=== PATIENT | male | born 1965 | race Caucasian/White ===

== ENCOUNTER 2017-11-05 21:59 | Emergency (ER) | END 2017-11-06 02:30 | disposition short-term general hospital (02) ==

== ENCOUNTER 2018-02-03 14:56 | Emergency (ER) | END 2018-02-03 17:29 | disposition home or self-care (01) ==

== ENCOUNTER 2018-11-24 13:04 | Emergency (ER) | payer MEDICAID, OTHER ==
[~2018-11-24] VITALS: Wt 70.0 kg
[~2018-11-24 13:04] MED LIST: NAPR-985 PO; SSD1C20 TOP; TRAM50TA2 PO
[2018-11-24 13:08] VITALS: BP 142/80; PULSE 85; RESP 18
[2018-11-24] MEDS ORDERED: KETOROLAC 30 MG INJ IM STA (14:58)
[2018-11-24] MEDS ORDERED: HYDROCODONE/APAP (5/325) TAB PO ONE (15:00)
[2018-11-24] MEDS ORDERED: IBUP-1542 PO (15:08)
[2018-11-24] MEDS ORDERED: TRAM50TA2 PO (15:08)
--- NOTE | 2018-11-24 15:12 | ERD ---
ER Documentation Chief Complaint Chief Complaint right side lower back pain non traumatic for a few days. HPI 52-year-old male presents low back pain rating to the right buttock with some s ensation of burning for last 3 days. Denies any history of trauma. Denies any bowel or bladder incontinence, fevers, urinary complaints. Patient describes it as a 10, worse with movement, decreased with rest, pain sharp and burning and radiates to the right lower extremity. ROS All systems reviewed and are negative except as per history of present illness. Medications Home Meds Active Scripts Ibuprofen* (Motrin*) 600 Mg Tab, 600 MG PO Q6, #30 TAB Prov:DENAE HOUSE MD 11/24/18 Tramadol HCl (Tramadol HCl) 50 Mg Tablet, 50 MG PO Q4 PRN for PAIN, #20 TAB Prov:DENAE HOUSE MD 11/24/18 Naproxen* (Naprosyn*) 500 Mg Tablet, 500 MG PO BID PRN for PAIN AND/OR INFLAMMATION, #30 TAB Prov:KATHY MUSA PA-C 07/14/16 Tramadol HCl (Tramadol HCl) 50 Mg Tablet, 50 MG PO Q4 PRN for PAIN, #30 TAB Prov:KATHY MUSA PA-C 07/14/16 Silver Sulfadiazine (THERMAZENE 1% 25 GM) 1 Applic Cr, 1 APPLIC TOP BID, #1 TUB Prov:CHLOE ROWLAND 04/10/16 Allergies Allergies: Coded Allergies: No Known Allergy (Unverified , 09/18/14) PMhx/Soc History of Surgery: Yes (appy) Anesthesia Reaction: No Hx Neurological Disorder: No Hx Respiratory Disorders: No Hx Cardiac Disorders: No Hx Psychiatric Problems: No Hx Miscellaneous Medical Probl: Yes (DM, left foot ulcer ) Hx Alcohol Use: No Hx Substance Use: No Hx Tobacco Use: No FmHx Family History: No diabetes, No coronary disease, No other Physical Exam Vitals Vital Signs Date Temp Pulse Resp B/P (MAP) Pulse Ox O2 O2 Flow FiO2 Time Delivery Rate 11/24/18 98.0 85 18 142/80 98 13:08 (100) Physical Exam Const: No acute distress Head: Atraumatic Eyes: Normal Conjunctiva ENT: Normal External Ears, Nose and Mouth. Neck: Full range of motion. No meningismus. Resp: Clear to auscultation bilaterally Cardio: Regular rate and rhythm, no murmurs Abd: Soft, non tender, non distended. Normal bowel sounds Skin: No petechiae or rashes Back: No midline or flank tenderness. Tenderness right L4-5 area with spasm. No midline tenderness or deformities. Positive straight leg raise. Ext: No cyanosis, or edema Neur: Awake and alert Psych: Normal Mood and Affect Results 24 hrs Current Medications Medications Dose Sig/Kailyn Start Time Status Last (Trade) Ordered Route PRN Stop Time Admin Dose Reason Admin Ketorolac 30 mg ONCE STAT 11/24/18 DC 11/24/18 Tromethamine IM 14:58 15:05 (Toradol) 11/24/18 14:59 1 tab ONCE ONCE 11/24/18 DC 11/24/18 Acetaminophen PO 15:00 15:06 / 11/24/18 15:01 Hydrocodone Bitart (Ceiba (5/325)) Procedures/MDM Patient presents with nontraumatic low back pain with radiation to right lower extremity consistent with sciatica. Doubt cauda equina, epidural abscess, no mechanism to suggest fracture, dislocation, additional concerning signs or symptoms. Will be treated with Toradol, Ceiba x1 here. He will be treated with Tylenol and ibuprofen at home with instructions on back exercises. He should return for fevers, new or worsening symptoms with primary care doctor. The patient was stable with no new complaints during the ER course. Clinically, there is no current evidence to suggest meningitis, sepsis, acute abdomen, pneumonia, stroke, acute coronary syndrome, pulmonary embolism, aortic dissection or any other emergent condition appearing to require further evaluation or hospitalization. Patient counseled regarding my diagnostic impression and care plan. Prior to discharge all questions answered. Pt agrees with treatment plan and understands strict return precautions. Pt is instructed to follow up with primary care provider within 24-48 hours. Precautionary instructions provided including instructions to return to the ER if not improving or for any worsening or changing symptoms or concerns. Departure Diagnosis: Primary Impression: Back pain Back pain location: low back pain Chronicity: acute Back pain laterality: right Sciatica presence: with sciatica Sciatica laterality: sciatica of right side Qualified Codes: M54.41 - Lumbago with sciatica, right side Condition: Stable Patient Instructions: Back Exercises, Lumbar, Back Pain W/ Sciatica Referrals: NO PRIMARY,CARE PHYSICIAN (PCP) Additional Instructions: Cheque otro vez con mccoy doctor primario en el proximo girard or regresa para mas o nueva simptomas. DENAE HOUSE MD Nov 24, 2018 15:12
== END 2018-11-24 15:24 | disposition home or self-care (01) ==
LOC: FTE 13:04
DX: M54.41 Lumbago with sciatica, right side (principal); E11.9 Type 2 diabetes mellitus without complications
CPT/HCPCS: 96372; J1885; Z7502; Z7610

== ENCOUNTER 2019-04-15 09:19 | Emergency (ER) | payer MEDICAID, OTHER ==
[~2019-04-15] VITALS: Wt 69.6 kg
[~2019-04-15 09:19] MED LIST changes: +FAMO-96 PO; +IBUP-1542 PO; +MAG-19 PO; +ONDA4TAB8 PO
[2019-04-15] MEDS ORDERED: ONDANSETRON (ODT) 4 MG TAB ODT STA (10:12)
[2019-04-15] MEDS ORDERED: LIDOCAINE/MYLANTA 40 ML BTL PO ONE (10:30)
[2019-04-15] MEDS ORDERED: IOHEXOL 300MG/ML 150 ML BTL ONE (12:34)
[2019-04-15] MEDS ORDERED: SOD CHLORIDE 0.9% 100 ML ONE (12:34)
[2019-04-15 13:39] VITALS: BP 114/71; PULSE 78; RESP 24
== END 2019-04-15 13:40 | disposition home or self-care (01) ==
LOC: FTE 09:19
DX: R11.2 Nausea with vomiting, unspecified (principal); E11.9 Type 2 diabetes mellitus without complications; R10.11 Right upper quadrant pain
CPT/HCPCS: 74177; 76705; 80053; 81001; 83690; 84484; 85025; 85610; 85730; 93005; 99285; Q9967